=== PATIENT | male | born 1990 | race Two or more races ===

== ENCOUNTER 2025-05-16 16:52 | Emergency (ER) | payer BC ==
[~2025-05-16] VITALS: Ht 182.9 cm; Wt 127.0 kg
== END 2025-05-16 19:05 | disposition left against medical advice (07) ==
LOC: ER 17:43
DX: S61.452A Open bite of left hand, initial encounter (principal); W64.XXXA Exposure to other animate mechanical forces, initial encounter; Y93.89 Activity, other specified; Y92.830 Public park as the place of occurrence of the external cause; Y99.8 Other external cause status; Z53.29 Procedure and treatment not carried out because of patient's decision for other reasons